=== PATIENT | female | born 1945 | race Caucasian/White ===

== ENCOUNTER 2021-05-03 20:42 | Emergency (ER) | payer OTHER, MEDICARE ==
[~2021-05-03] VITALS: Ht 154.9 cm; Wt 68.0 kg
[2021-05-03 21:22] LABS: HEMATOCRIT 47.3 % (37.0-47.0); HEMOGLOBIN 15.3 gm/dL (12.0-15.0); MCH 29.5 pg (26.0-34.0); MCHC 32.3 g/dL (28.0-37.0); MCV 91.2 fL (80.0-100.0); NUCLEATED RBCS 0 /100WBC; PLATELET COUNT* 330 thou/uL (150-400); RBC 5.18 mil/uL (4.20-5.00); RDW-CV 14.5 % (10.5-14.5); WBC 10.7 thou/uL (4.0-11.0)
[2021-05-03 21:31] LABS: URINE BLOOD NEGATIVE (Negative); URINE CLARITY CLEAR; URINE COLOR YELLOW; URINE GLUCOSE-RANDOM 3+ (Negative); URINE KETONES NEGATIVE (Negative); URINE LEUKOCYTES-REFLEX NEGATIVE (Negative); URINE NITRITE-REFLEX NEGATIVE (Negative); URINE PROTEIN NEGATIVE (Negative); URINE SPECIFIC GRAVITY 1.015 (1.005-1.030)
[2021-05-03 21:32] LABS: ICTOTEST (BILI CONFIRMATORY) Negative (Negative); URINE BILIRUBIN 1+ (Negative)
[2021-05-03 21:32] LABS: CALCIUM 9.8 mg/dL (8.5-10.1); CREATININE 2.2 mg/dL (0.6-1.3); POTASSIUM 4.7 mmol/L (3.5-5.1)
[2021-05-03 21:36] LABS: MAGNESIUM 2.4 mg/dL (1.8-2.4); TOTAL PROTEIN 7.2 g/dL (6.4-8.2)
[2021-05-03 21:40] LABS: ABSOLUTE MONOCYTES 0.3 thou/uL (0.0-1.2); ABSOLUTE NEUTROPHILS 9.4 thou/uL (1.6-8.1); ATYPICAL LYMPHS 1 %; PLATELET ESTIMATE ADEQUATE
[2021-05-04 01:50] VITALS: BP 128/67
--- NOTE | 2021-05-04 10:07 | EKG ---
[place] [address] ELECTROCARDIOGRAM REPORT Name: VERONICA BUSTILLOS Room: [facility]#: [id number] Admission: 05/03/21 Attend Phys: Discharge: 05/04/21 Date of : 43 Date of Service: 05/03/212055 Report #: [id number] THIS REPORT FOR: //name// [facility] ED Test Date: 2021-05-03 Test Time: 20:56:17 Pat Name: VERONICA BUSTILLOS Department: Room: Gender: F Professional Application [employer]er: : [id number] Requested By: Kaitlyn Duran Order Number: [id number] MD: Jose Drew Measurements Intervals Lafe Rate: 69 P: 73 WV: 155 QRS: 12 QRSD: 110 T: 37 QT: 419 QTc: 449 Interpretive Statements Sinus rhythm No previous ECG available for comparison Electronically Signed On 05-04-2021 10:07:21 CDT by Jose Drew [email or web address] <ELECTRONICALLY SIGNED> By: Jose Drew MD, [facility] 05/04/211006 55 55 Jose Drew MD, FACC /EPI
== END 2021-05-04 01:50 | disposition home or self-care (01) ==
LOC: M.ERS 20:42
PROVIDERS: Personal Emergency Response Attendant
DX: N28.9 Disorder of kidney and ureter, unspecified (principal); E11.9 Type 2 diabetes mellitus without complications; Z88.0 Allergy status to penicillin; Z88.8 Allergy status to other drugs, medicaments and biological substances